=== PATIENT | female | born 1985 | race African-American/Black ===

== ENCOUNTER 2016-12-24 13:02 | Emergency (ER) | payer MEDICAID | END 2016-12-24 17:45 | disposition left against medical advice (07) | LOC: D.ER 13:02 | DX: H57.11 Ocular pain, right eye (principal) ==

== ENCOUNTER 2016-12-24 20:00 | Emergency (ER) | payer MEDICAID | END 2016-12-25 00:35 | disposition left against medical advice (07) | LOC: D.ER 20:00 | DX: Z02.9 Encounter for administrative examinations, unspecified (principal) ==

== ENCOUNTER 2018-04-14 09:35 | Emergency (ER) | payer OTHER ==
[2018-04-14 11:09] LABS: BASOPHILS 0.3 % (0-2); EOSINOPHILS 0.6 % (0-7); HEMOGLOBIN 11.8 g/dL (12-16); IMMATURE GRANULOCYTES 0.1 % (0-5); LYMPHOCYTES 25.8 % (15-50); MCHC 33.7 g/dL (31.0-37.0); MCV 91.9 fL (80.0-100.0); MEAN PLATELET VOLUME 11.1 fL (7.4-10.4); MONOCYTES 10.3 % (2-11); NEUTROPHILS 62.9 % (40-80); PLATELET COUNT 283 10x3/uL (130-400); RBC 3.81 10x6/uL (4.00-5.40); RDW 13.1 % (11.5-14.5); WBC 7.1 10x3/uL (4.8-10.8)
[2018-04-14 11:22] LABS: APTT 30.4 SECONDS (22.8-39.4); INR 1.01 (0.85-1.17); PROTIME 12.9 SECONDS (11.6-15.0)
[2018-04-14 11:25] LABS: ALBUMIN 3.3 g/dL (3.4-5.0); ALKALINE PHOSPHATASE 35 U/L (46-116); ALT (SGPT) 20 U/L (10-68); BILIRUBIN - TOTAL 0.56 mg/dL (0.2-1.3); C-REACTIVE PROTEIN < 0.2 mg/dL (0.0-0.9); CALC OSMOLALITY 278 mosm/kg (275-300); CALCIUM 8.8 mg/dL (8.5-10.1); CHLORIDE - SERUM 107 mmol/L (98-107); CREATININE - SERUM 0.7 mg/dL (0.6-1.3); GLUCOSE 92 mg/dL (74-106); POTASSIUM - SERUM 3.9 mmol/L (3.5-5.1); PROTEIN - SERUM 6.4 g/dL (6.4-8.2); SODIUM 141 mmol/L (136-145); UREA NITROGEN 7 mg/dL (7-18); eGFR NON AFRICAN AMERICAN > 90 mL/min (90-120)
[2018-04-14 12:04] LABS: APPEARANCE CLEAR (CLEAR); COLOR YELLOW (YELLOW); GLUCOSE NEGATIVE (NEGATIVE); NITRITE NEGATIVE (NEGATIVE); PROTEIN NEGATIVE (NEGATIVE)
[2018-04-14 12:05] LABS: BILIRUBIN NEGATIVE (NEGATIVE); KETONE NEGATIVE (NEGATIVE); UROBILINOGEN NORMAL (NORMAL)
[2018-04-14 12:14] LABS: ERYTHROCYTE SEDIMENTATION RATE 3 mm/hr (0-20)
== END 2018-04-14 14:30 | disposition home or self-care (01) ==
LOC: D.ER 09:35
PROVIDERS: Physician Assistant
DX: K62.5 Hemorrhage of anus and rectum (principal)